=== PATIENT | male | born 1950 | race Caucasian/White ===

== ENCOUNTER → 2016-04-29 | Outpatient (CLI) | payer OTHER | LOC: KOH-I 04-22 12:00 | DX: R42 Dizziness and giddiness (principal) | CPT/HCPCS: 70450 ==

== ENCOUNTER → 2021-07-28 | Outpatient (CLI) | payer MEDICARE ==
[~2021-07-28] MED LIST: FLEXERIL 10 MG10 MG PO; IBUPROFEN800 MG PO
== END ==
LOC: EXRD 15:21
DX: S46.912A Strain of unspecified muscle, fascia and tendon at shoulder and upper arm level, left arm, initial encounter (principal)
CPT/HCPCS: 73030

== ENCOUNTER → 2021-07-30 | Outpatient (CLI) | payer MEDICARE | LOC: EXRD 07:59 | DX: M85.88 Other specified disorders of bone density and structure, other site (principal); M81.0 Age-related osteoporosis without current pathological fracture | CPT/HCPCS: 77080 ==

== ENCOUNTER 2021-09-14 22:30 | Emergency (ER) | payer MEDICARE ==
[2021-09-14 23:07] LABS: HEMOGLOBIN 14.2 gm/dl (14.0-17.5); RED BLOOD COUNT 4.57 M/UL (4.20-5.50)
[2021-09-14 23:38] LABS: BUN/CREATININE RATIO 22 (0-10)
== END 2021-09-15 05:50 | disposition home or self-care (01) ==
LOC: ER1 22:30
PROVIDERS: Family Medicine
DX: T42.8X1A Poisoning by antiparkinsonism drugs and other central muscle-tone depressants, accidental (unintentional), initial encounter (principal); G47.10 Hypersomnia, unspecified; R61 Generalized hyperhidrosis; Z51.81 Encounter for therapeutic drug level monitoring
CPT/HCPCS: 36600; 70450; 71045; 80053; 80307; 81001; 82550; 82553; 82803; 83605; 84439; 84443; 84484; 85025; 85610; 93005; 99284; G0480

== ENCOUNTER → 2021-11-26 | Outpatient (CLI) | payer MEDICARE | LOC: EXRD 15:15 | DX: M50.30 Other cervical disc degeneration, unspecified cervical region (principal) | CPT/HCPCS: 72040 ==